=== PATIENT | male | born 1950 | race Caucasian/White ===

== ENCOUNTER 2017-08-23 05:06 | Observation (INO) ==
[2017-08-23 05:41] LABS: Basophils % 0.4 %; Eosinophils # 0.2 K/mcL (0.0-0.6); Eosinophils % 2.4 %; Hematocrit 45.5 % (37.5-50.1); Hemoglobin 15.4 g/dL (12.9-16.9); Immature Granulocytes % 0.2 % (0-4); Lymphocytes % 21.7 %; Mean Corpuscular HGB Conc 33.8 g/dL (31.6-35.5); Mean Corpuscular Hemoglobin 32.7 pg (28.0-33.3); Mean Corpuscular Volume 96.6 fL (83.0-100.0); Mean Platelet Volume 9.9 fL (9.4-12.4); Monocytes # 1.1 K/mcL (0.0-1.3); Monocytes % 12.1 %; Neutrophils # 5.9 K/mcL (1.6-8.9); Platelet Count 230 K/mcL (140-400); Red Blood Count 4.71 M/mcL (4.19-5.50); Red Cell Distribution Width 12.5 % (11.5-14.5); Segmented Neutrophils % 63.2 %
--- NOTE | 2017-08-23 05:41 | Emergency Department Note ---
Disposition Clinical Impression: Elevated troponin, Shortness of breath Disposition: Admitted As Inpatient Condition: Good SOB HPI - General Chief Complaint: ED Shortness of Breath/Dyspnea Stated Complaint: antelmo Time Seen by Provider: 08/23/17 05:09 Source: patient, EMS Mode of arrival: EMS Limitations: no limitations Nursing Notes Reviewed: Yes Vital Signs Reviewed: Yes - History of Present Illness 67-year-old male history of CABG 2, recent stent placement at [place] who presents to the ER via EMS due to shortness of breath. Patient reports he was just discharged yesterday evening. He was diagnosed with influenza and started on Tamiflu on Saturday. He states they checked him chest x-ray for pneumonia and it was okay. He reports after he got home he started developing worsening shortness of breath overnight. He reports a cough with some sputum productive sputum. No fevers. No chest pain. No nausea vomiting or diarrhea. No history of COPD or asthma. No other complaints. Pt Subjective Complaint: shortness of breath, cough Onset (ago): hour(s) Context: recent illness Severity: moderate Consistency/Duration: constant Improves with: nothing Worsens with: nothing Associated symptoms: Reports: cough, sputum production. Denies: chest pain, fever Treatment prior to arrival: none Cough present: Yes Cough Description: Involuntary Cough Frequency: Intermittent Sputum production: No Sputum Amount: None - Related Data Home oxygen amount: none Home Medications Medication Instructions Recorded Confirmed Aspirin [Ecotrin] 325 mg PO DAILY #0 10/08/15 08/23/17 Lansoprazole [Prevacid] 30 mg PO DAILY #0 10/08/15 08/23/17 Lisinopril-HCTZ 10-12.5 [Prinzide 1 tab PO DAILY #0 10/08/15 08/23/17 10-12.5] Multivitamin [One Daily 1 tab PO DAILY #0 10/08/15 08/23/17 Multivitamin] Niacin [Plain Niacin] 250 mg PO DAILY #0 10/08/15 08/23/17 Nitroglycerin [Nitrostat] 0.4 mg SL Q5M #0 10/08/15 08/23/17 Atorvastatin [Lipitor] 40 mg PO HS 08/23/17 08/23/17 Clopidogrel [Plavix] 75 mg PO DAILY 08/23/17 08/23/17 Metoprolol Succinate 50 mg PO DAILY 08/23/17 08/23/17 Pregabalin [Lyrica] 50 mg PO BID 08/23/17 08/23/17 Zolpidem Tartrate [Ambien Cr] 12.5 mg PO HS 08/23/17 08/23/17 amLODIPine [Norvasc] 5 mg PO DAILY 08/23/17 08/23/17 Previous Rx's Medication Instructions Recorded Oseltamivir [Tamiflu] 75 mg PO BID 5 Days capsule 10/08/15 Allergies Allergy/AdvReac Type Severity Reaction Status Date / Time tetanus and diphtheria Allergy See Verified 10/31/16 18:16 toxoids Comments [Tetanus&Diphtheria Toxoid] All systems ED: reviewed and negative except as stated. Constitutional: Denies: fever Cardiovascular: Denies: chest pain Respiratory: Reports: cough, dyspnea, sputum production Gastrointestinal: Denies: abdominal pain, nausea, vomiting Past Medical History - Past Medical History Attestation: Yes The following information was validated with the patient. Source: patient Medical history: Reports: coronary artery disease, hyperlipidemia, hypertension , myocardial infarction Psychiatric history: Reports: no psych history - Social History Smoking Status: Never smoker Smokeless Tobacco Status: No Alcohol use: Reports: none Drug use: Reports: none Physical Exam - General Limitations: no limitations General appearance: alert, in no apparent distress - Head Head exam: atraumatic - Eye Eye exam: Present: normal appearance - ENT ENT exam: normal exam - Neck Neck exam: Present: normal inspection, full ROM - Chest Chest inspection: Present: normal inspection, symmetric chest wall rise - Respiratory Respiratory exam: Present: normal lung sounds bilaterally - Cardiovascular Cardiovascular exam: Present: regular rate, normal rhythm, normal heart sounds - Abdominal Exam Abdominal exam: Present: soft, Non-Tender. Absent: tenderness - Extremities Exam Extremities exam: Present: normal inspection, full ROM - Expanded Upper Extremity Exam Shoulder exam: Present: normal inspection, full ROM Arm exam: Present: normal inspection, full ROM Elbow exam: Present: normal inspection, full ROM Forearm/Wrist exam: Present: normal inspection, full ROM Hand exam: Present: normal inspection, full ROM - Expanded Lower Extremity Exam Hip/Pelvis exam: Present: normal inspection, full ROM Upper leg exam: Present: normal inspection, full ROM Knee exam: Present: normal inspection, full ROM Lower leg exam: Present: normal inspection, full ROM Ankle exam: Present: normal inspection, full ROM Foot/toe exam: Present: normal inspection, full ROM - Skin Skin exam: Present: warm, dry Course Course Narrative: Patient seen and examined. Vital signs reviewed. We will get an EKG, chest x- ray as well as labs including troponin. - Reevaluation(s) Reevaluation #1: Troponin elevated at 1.33. Discussed with patient. Offered transfer versus admission here. He is comfortable with being admitted here at this time. He denies any recent bleeding. We will order heparin and speak with cardiology as well as the hospitalist for admission. Cardiology paged. Vital Signs Temperature 99.1 F 08/23/17 05:10 Pulse Rate 94 08/23/17 05:10 Respiratory Rate 20 08/23/17 05:10 Blood Pressure 224/121 08/23/17 05:10 O2 Sat by Pulse Oximetry 96 08/23/17 05:10 Temperature 99.1 F 08/23/17 05:10 Pulse Rate 93 08/23/17 07:11 Respiratory Rate 20 08/23/17 07:11 Blood Pressure 134/101 08/23/17 07:11 O2 Sat by Pulse Oximetry 94 08/23/17 07:11 Oxygen Delivery Oxygen Delivery Room Air Shortness of Breath/Dyspnea - MDM Narrative Medical decision making narrative: 67-year-old male presents to the ER due to shortness of breath and cough. He was recently hospitalized and underwent left heart catheterization with a stent placed in his prior bypass graft. He denies any chest pain here. He is hemodynamically stable. EKG without ischemic features. Chest x-ray unremarkable. He is currently being treated for influenza. He is noted to have an elevated troponin of 1.33. He is chest pain-free. It is likely that this may be secondary to his recent heart catheterization however patient will be heparinized and admitted to the hospitalist service with cardiology consultation. - Lab Data Lab results reviewed: Yes I reviewed the patient's lab results. Result diagrams: 08/23/17 05:25 08/23/17 05:25 Lab Results 08/23/17 08/23/17 08/23/17 Range/Units 05:25 05:25 05:25 WBC 9.3 (4.3-11.1) K/mcL RBC 4.71 (4.19-5.50) M/mcL Hgb 15.4 (12.9-16.9) g/dL Hct 45.5 (37.5-50.1) % MCV 96.6 (83.0-100.0) fL MCH 32.7 (28.0-33.3) pg MCHC 33.8 (31.6-35.5) g/dL RDW 12.5 (11.5-14.5) % Plt Count 230 (140-400) K/mcL MPV 9.9 (9.4-12.4) fL Immature Gran % 0.2 (0-4) % Seg Neutrophils % 63.2 % Lymphocytes % 21.7 % Monocytes % 12.1 % Eosinophils % 2.4 % Basophils % 0.4 % Neutrophils # 5.9 (1.6-8.9) K/mcL Lymphocytes # 2.0 (0.6-4.6) K/mcL Monocytes # 1.1 (0.0-1.3) K/mcL Eosinophils # 0.2 (0.0-0.6) K/mcL Basophils # 0.0 (0.0-0.2) K/mcL PT (9.4-12.1) Seconds INR APTT (26.0-36.0) Seconds Sodium 140 (136-145) mEq/L Potassium 4.1 (3.5-5.1) mEq/L Chloride 102 (98-107) mEq/L Carbon Dioxide 29 (23-29) mEq/L BUN 18 (8-23) mg/dL Creatinine 1.18 (0.70-1.30) mg/dL Est GFR ( Amer) > 60 (> 60) Est GFR (Non-Af Amer) > 60 (> 60) BUN/Creatinine Ratio 15 (6-26) Glucose 104 (70-105) mg/dL Calculated Osmolality 292 (280-300) Calcium 9.4 (8.6-10.3) mg/dL Troponin I 1.33 H* (< 0.04) ng/mL B-Natriuretic Peptide (Less than 100) pg/mL 08/23/17 08/23/17 Range/Units 05:25 05:25 WBC (4.3-11.1) K/mcL RBC (4.19-5.50) M/mcL Hgb (12.9-16.9) g/dL Hct (37.5-50.1) % MCV (83.0-100.0) fL MCH (28.0-33.3) pg MCHC (31.6-35.5) g/dL RDW (11.5-14.5) % Plt Count (140-400) K/mcL MPV (9.4-12.4) fL Immature Gran % (0-4) % Seg Neutrophils % % Lymphocytes % % Monocytes % % Eosinophils % % Basophils % % Neutrophils # (1.6-8.9) K/mcL Lymphocytes # (0.6-4.6) K/mcL Monocytes # (0.0-1.3) K/mcL Eosinophils # (0.0-0.6) K/mcL Basophils # (0.0-0.2) K/mcL PT 12.0 (9.4-12.1) Seconds INR 1.1 APTT 27.6 (26.0-36.0) Seconds Sodium (136-145) mEq/L Potassium (3.5-5.1) mEq/L Chloride (98-107) mEq/L Carbon Dioxide (23-29) mEq/L BUN (8-23) mg/dL Creatinine (0.70-1.30) mg/dL Est GFR ( Amer) (> 60) Est GFR (Non-Af Amer) (> 60) BUN/Creatinine Ratio (6-26) Glucose (70-105) mg/dL Calculated Osmolality (280-300) Calcium (8.6-10.3) mg/dL Troponin I (< 0.04) ng/mL B-Natriuretic Peptide 99 (Less than 100) pg/mL - Radiology Data Radiology results reviewed: Yes I reviewed the patient's radiology results. Chest X-Ray 08/23/17 05:19 IMPRESSION: No acute process. D/ / Clarissa Frank MD / Clarissa Frank MD Interpreting Provider: Clarissa Frank MD - EKG Data EKG attestation: Yes I reviewed and interpreted this EKG. EKG results narrative: EKG demonstrates sinus rhythm with PVCs with a rate of 89 bpm. Normal axis. Normal intervals. Normal R-wave progression. No gross ST elevations or depressions. No acute ischemic findings. No significant changes from previous EKG dated 10/31/16. Critical Care Time Critical Care Time: Yes Total Critical Care Time: 40 Attestation: Critical care performed: Time is exclusive of separately billable procedures. Time includes: direct patient care, patient reassessment, coordination of patient care, interpretation of data (laboratory data, radiology data, and respiratory data), review of patient's medical records, medical consultation and documentation of patient care. Procedures included in critical care time: Procedures excluded from critical care time: S.B.A.Adelia. - Zehra.Emeka Situation: Demographics, MOA Background: Presenting Complaint, Relevant PMH, Meds, & Allergies Assessment: Vital Signs, Course and respsone to treatment, Exam Concerns, Patient/Family Expectation, Pertinant Lab Results Recommendation: Barrier(s) to disposition, Recommendation based on pending studies, treatments, or consults [email or web address] Report Given to: Dr. Aiden De La Cruz Repor Time: 06:45 Attestation Statement - Attestation Attestation: I, Bradford Patton MD, personally evaluated this patient and discussed their management with the resident physician. I reviewed the resident's note and agree with the documented findings, medical decision making, and plan of care. 67-year-old male presents to the emergency department with a complaint of difficulty breathing. Patient just had a cardiac catheter with stents placed 2 days ago. On the day that he had the procedure done he developed a fever and had a positive flu swab for type A. He has been on Tamiflu for the past 2 days. He was discharged from the hospital yesterday and presents here tonight complaining of difficulty breathing and shortness of breath with tightness in his chest. He states he has been unable to sleep all night due to the shortness of breath. Some mild cough. On examination patient is a well-developed well-nourished female in no acute distress. He does appear mildly short of breath and is somewhat anxious. No cyanosis or diaphoresis. Patient talks in full sentences. Breath sounds are clear and equal bilaterally. Heart regular rate and rhythm with occasional ectopy. Abdomen soft and nontender with normal bowel sounds. Labs reviewed. Troponin 1.33. Otherwise unremarkable. Chest x-ray negative. EKG shows a normal sinus rhythm with frequent PVCs. Heart rate 89. Possible anterior TN, probably old. No acute ischemic changes noted. Patient was placed on a heparin infusion. I discussed the case with the costumed character on-call, Dr. Arroyo. She is in agreement with the heparin and trending the troponins and cardiology will consult on the patient in the hospital. The hospitalist, Dr. Wolfe, was consulted and accepted admission of the patient.
[2017-08-23 06:06] LABS: BUN/Creatinine Ratio 15 (6-26); Blood Urea Nitrogen 18 mg/dL (8-23); Calcium 9.4 mg/dL (8.6-10.3); Carbon Dioxide 29 mEq/L (23-29); Chloride 102 mEq/L (98-107); Glucose 104 mg/dL (70-105); Osmolality,Calculated 292 (280-300); Potassium 4.1 mEq/L (3.5-5.1); Sodium 140 mEq/L (136-145); eGFR For African Americans > 60 (> 60); eGFR For Non-African Americans > 60 (> 60)
[2017-08-23] MEDS ORDERED: Benzonatate 100 MG CAPSULE PO ONE (06:11)
[2017-08-23] MEDS ORDERED: *HR* Heparin 5,000 UNIT/ML VIAL IVP PRN ×2 (06:19)
[2017-08-23] MEDS ORDERED: *HR* Heparin 5,000 UNIT/ML VIAL IVP ONE (06:19)
[2017-08-23 07:05] LABS: INR 1.1
[2017-08-23 07:08] LABS: Activated Partial Thrombo Time 27.6 Seconds (26.0-36.0)
[2017-08-23] MEDS: Heparin 25,000 UNIT/500 ML D5W 25,000 UNIT/500 ML BAG IVC SCH (07:14)
--- NOTE | 2017-08-23 07:47 | Internal Med History&Physical ---
Date of Encounter: 08/23/17 Time of Encounter: 07:42 Assessment and Plan (1) CAD (coronary artery disease) Current visit: Yes Status: Chronic History of CABG 2 vessel no chest pain just had recent angioplasty O1 vessel on saturday Qualifiers: Coronary Disease-Associated Artery/Lesion type: bypass graft [place] vs. transplanted heart: [place] heart Associated angina: without angina Qualified Code(s): I25.810 - Atherosclerosis of coronary artery bypass graft(s) without angina pectoris (2) Hx of CABG Current visit: Yes Status: Acute (3) Hyperlipidemia Current visit: Yes Status: Chronic Chronic Qualifiers: Hyperlipidemia type: pure hypercholesterolemia Qualified Code(s): E78.00 - Pure hypercholesterolemia, unspecified; E78.0 - Pure hypercholesterolemia (4) Elevated troponin Current visit: Yes Status: Acute Troponin 1.33 had a recent angioplasty will consult cardiology for further evaluation patient is not having any chest pain (5) Shortness of breath Current visit: Yes Status: Acute Clinically patient is not in congestive heart failure no active wheezing chest x -rays unremarkable most likely flu syndrome Internal Medicine - H&P: HPI Chief complaint: sob Admitted From: Emergency Dept Plans for Post Hospital Care: Home History of present illness: Mr. Smimons is a 67 year old male Patient with history of CABG 2 vessels, high cholesterol, hypertension, obesity , he was just at [facility] near [place] and had 1 stent placed on Saturday he was having some nonproductive cough he had the flu test which was positive that he was started on Tamiflu patient was just discharged home yesterday to continue on Tamiflu when he got home he felt he was short of breath and they decided to come back to the emergency room here evaluation here chest x-ray was unremarkable no pneumonia BNP was 99 clinically without heart failure troponin was 1.33 patient is being admitted because of the positive troponin patient he does not know whether his troponin was high at the hospital and to his knowledge he was not diagnosed with myocardial infarction or nstemi He is not having any chest pain patient will be admitted and consult cardiology. Past Med Surg Social Fam HX - Past Medical History Medical history: coronary artery disease, hyperlipidemia, hypertension, myocardial infarction Psychiatric history: no psych history - Past Surgical History Surgical History: coronary bypass (CABG) - Social History Smoking Status: Never smoker Smokeless Tobacco Status: No Alcohol use: none Drug use: none Internal Medicine - H&P: Meds Aspirin [Ecotrin] 325 mg PO DAILY #0 10/08/15 [History] Lansoprazole [Prevacid] 30 mg PO DAILY #0 10/08/15 [History] Lisinopril-HCTZ 10-12.5 [Prinzide 10-12.5] 1 tab PO DAILY #0 10/08/15 [History] Multivitamin [One Daily Multivitamin] 1 tab PO DAILY #0 10/08/15 [History] Niacin [Plain Niacin] 250 mg PO DAILY #0 10/08/15 [History] Nitroglycerin [Nitrostat] 0.4 mg SL Q5M #0 10/08/15 [History] Oseltamivir [Tamiflu] 75 mg PO BID 5 Days capsule 10/08/15 [Rx] Atorvastatin [Lipitor] 40 mg PO HS 08/23/17 [History] Clopidogrel [Plavix] 75 mg PO DAILY 08/23/17 [History] Metoprolol Succinate 50 mg PO DAILY 08/23/17 [History] Pregabalin [Lyrica] 50 mg PO BID 08/23/17 [History] Zolpidem Tartrate [Ambien Cr] 12.5 mg PO HS 08/23/17 [History] amLODIPine [Norvasc] 5 mg PO DAILY 08/23/17 [History] 3 Allergy/AdvReac Type Severity Reaction Status Date / Time tetanus and diphtheria Allergy See Verified 10/31/16 18:16 toxoids Comments [Tetanus&Diphtheria Toxoid] All Systems PM: A 10-system review of systems was performed and is negative for pertinent findings except as documented above in the HPI. - Constitutional Constitutional: no chills, no fever(s), no night sweats - EENT Eyes: no change in vision, no discharge, no pain, no photophobia Ears: no ear discharge, no ear pain, no tinnitus Nose, mouth and throat: no dysphagia, no nasal discharge, no neck pain, no sore throat - Cardiovascular Cardiovascular ROS IM: dyspnea, dyspnea on exertion - Respiratory Respiratory: cough, dyspnea, no excessive phlegm production - Gastrointestinal Gastrointestinal: no abdominal pain, no diarrhea, no hematemesis, no hematochezia, no melena, no nausea, no vomiting - Musculoskeletal Musculoskeletal ROS IM: no numbness, no tingling - Integumentary Integumentary IM: no rash, no unusual bruising - Constitutional Vitals: Temp Pulse Resp BP Pulse Ox 99.1 F 93 20 134/101 94 08/23/17 05:10 08/23/17 07:11 08/23/17 07:11 08/23/17 07:11 08/23/17 07:11 General appearance: Present: A&O X 3 - Neck Neck exam general surgery: Present: supple, trachea midline. Absent: lymphadenopathy - Respiratory Respiratory exam: Present: CTAB. Absent: accessory muscle use, rales, rhonchi, wheezes - Cardiovascular Cardiovascular exam: Present: RRR, +S1, +S2. Absent: diastolic murmur, gallop, rubs, systolic murmur - GI/Abdominal GI/Abdominal exam: Present: normal bowel sounds, soft, no peritoneal signs. Absent: distended, tenderness - Extremities Exam Extremities exam: Present: warm, radial pulses palpable and symmetrical. Absent : calf tenderness, cyanotic, pedal edema Internal Med - H&P Results - Labs CBC & Chem 7: 08/23/17 05:25 08/23/17 05:25
[2017-08-23] MEDS ORDERED: Ibuprofen 400 MG TABLET PO PRN (07:54)
[2017-08-23] MEDS ORDERED: Naloxone 0.4 MG/ML INJ IVP PRN (07:54)
[2017-08-23] MEDS ORDERED: Acetaminophen 325 MG TABLET PO PRN (07:54)
[2017-08-23] MEDS ORDERED: Nitroglycerin 0.4 MG TAB.SUBL SL SCH (08:00)
[2017-08-23] MEDS: amLODIPine 5 MG TABLET PO SCH (08:29)
[2017-08-23] MEDS: Multivit/Ca/Min/Fe/FA 1 TAB TABLET PO SCH (08:30)
[2017-08-23] MEDS ORDERED: Metoprolol XL (24 HR) Succ 50 MG TAB.ER.24H PO SCH (09:00)
[2017-08-23] MEDS ORDERED: NIACIN 250 MG PO SCH (09:00)
[2017-08-23] MEDS: Aspirin Enteric Coated 325 MG Tablet PO SCH (09:47)
--- NOTE | 2017-08-23 10:24 | Cardiology Consult Note ---
<EdgarAnasari Dash - Last Filed: 08/23/17 10:19> Date of Encounter: 08/23/17 Time of Encounter: 08:30 Assessment and Plan (1) Influenza Current Visit: Yes Status: Acute Per cardiology: -Recently diagnosed with influenza this week at outside facility. -On tamiflu. -Management per primary service. (2) Shortness of breath Current Visit: Yes Status: Acute Per cardiology: -Admitted with increased shortness of breath in the setting of influenza. -States breathing is better now than upon presentation. -Management per primary service. (3) Elevated troponin Current Visit: Yes Status: Acute Per cardiology: -Troponin 1.33, 1.21. -Troponins elevated in the setting of influenza, recent coronary intervention on Saturday of this week, and HTN. -OF note, BP 224/121 on admission. Currently 110-130s systolic. -Denies chest pain. -ECG with no acute ischemic changes, however ECG suboptimal. -Currently on heparin drip. -Will obtain records from [facility] regarding [facility], troponin levels. -Troponin elevated possibly related to recent coronary intervention. At this time do not suspect NSTEMI. No cardiac rehab consult warranted. -Will order TTE. -Further recommendations pending TTE and records review. (4) CAD (coronary artery disease) Current Visit: Yes Status: Chronic Per cardiology: -Known history of CAD with 2 previous CABG x3 vessels each time. -Recent PCI on Saturday. -Denies chest pain. -On asa, plavix, statin, beta camille. -Last TTE 04/2016 with LVEF 55%, mild diastolic dysfunction, mild AR, no segmental wall motion abnormalities. -Will check TTE. Qualifiers: Coronary Disease-Associated Artery/Lesion type: unspecified vessel or lesion type [place] vs. transplanted heart: [place] heart Associated angina: without angina Qualified Code(s): I25.10 - Atherosclerotic heart disease of [place] coronary artery without angina pectoris Discussion w patient/family: The assessment and plan as outlined above was discussed with the patient who expressed understanding and agreement. All questions were answered. Thank you for involving us in the care of your patient. Please call with any questions. Discussed and reviewed with Dr.John Madrid. History of Present Illness Consult date: 08/23/17 Consult reason: elevated troponin Chief complaint: shortness of breath History of present illness: Mr. Simmons is a 67 year old male with a relevant past medical history of CAD s/p CABG x3 vessels x2, PCIs, HTN, hyperlipidemia, obesity, [place]. Patient reports he was treated this past [facility] and underwent LHC with stenting. Patient reports he was discharged yesterday, however this morning had increased shortness of breath and presented to ER. Cardiology has been asked to see and evaluate patient due to elevated troponin. Patient denies chest pain. Patient presented with increased shortness of breath, however states is better now than upon presentation. Patient reports increased fatigue with recent illness. Patient reports compliance with his medication, specifically asa and plavix. Past Med Surg Social Fam HX - Past Medical History Attestation: Yes The following information was validated with the patient. Source: patient, old records reviewed Medical history: coronary artery disease, hyperlipidemia, hypertension, myocardial infarction Psychiatric history: no psych history - Past Surgical History Surgical History: coronary bypass (CABG) - Social History Smoking Status: Never smoker Smokeless Tobacco Status: No Alcohol use: none Drug use: none Medications and Allergies Aspirin [Ecotrin] 325 mg PO DAILY #0 10/08/15 [History] Lansoprazole [Prevacid] 30 mg PO DAILY #0 10/08/15 [History] Lisinopril-HCTZ 10-12.5 [Prinzide 10-12.5] 1 tab PO DAILY #0 10/08/15 [History] Multivitamin [One Daily Multivitamin] 1 tab PO DAILY #0 10/08/15 [History] Niacin [Plain Niacin] 250 mg PO DAILY #0 10/08/15 [History] Nitroglycerin [Nitrostat] 0.4 mg SL Q5M #0 10/08/15 [History] Oseltamivir [Tamiflu] 75 mg PO BID 5 Days capsule 10/08/15 [Rx] Atorvastatin [Lipitor] 40 mg PO HS 08/23/17 [History] Clopidogrel [Plavix] 75 mg PO DAILY 08/23/17 [History] Metoprolol Succinate 50 mg PO DAILY 08/23/17 [History] Pregabalin [Lyrica] 50 mg PO BID 08/23/17 [History] Zolpidem Tartrate [Ambien Cr] 12.5 mg PO HS 08/23/17 [History] amLODIPine [Norvasc] 5 mg PO DAILY 08/23/17 [History] 3 Allergy/AdvReac Type Severity Reaction Status Date / Time tetanus and diphtheria Allergy See Verified 10/31/16 18:16 toxoids Comments [Tetanus&Diphtheria Toxoid] All Systems Review: A 10-system review of systems was performed and is negative for pertinent findings except as documented above in the HPI. - Constitutional Constitutional: fatigue - Cardiovascular Cardiovascular: as per HPI, dyspnea at rest, dyspnea on exertion Physical Examination Vital Signs, Last 4 Hours Pulse Resp BP Pulse Ox 08/23/17 08:30 78 16 132/75 76 08/23/17 07:11 93 20 134/101 94 General: Conversant, No Apparent Distress HEENT: Atraumatic, Normocephaly, Mucus Membranes Moist Neck: No JVD, Normal carotid pulses Cardiac: Reg Rate and Rhythm, Normal S1 and S2, No Murmur Lungs: Normal Breath Sounds, No Wheeze, Rales, Rhonchi Neuro: Alert and responsive, No focal deficits noted Abdomen: Soft, Non-Tender Skin: No rashes noted on visualized skin Musculoskeletal: No Chest Wall Tenderness Extremities: No Clubbing, No Cyanosis, No Edema, Normal Pulses Results 08/23/17 05:25 08/23/17 05:25 Impressions Chest X-Ray 08/23/17 05:19 IMPRESSION: No acute process. D/ / Clarissa Frank MD / Clarissa Frank MD Interpreting Provider: Clarissa Frank MD Active Medications Acetaminophen (Tylenol) 650 mg PO Q6HR PRN PRN Reason: Mild Pain/Fever Stop: 02/22/18 07:55 Amlodipine Besylate (Norvasc) 5 mg PO DAILY [facility] PRN Reason: Protocol Stop: 02/22/18 09:01 Last Admin: 08/23/17 08:29 Dose: 5 mg Aspirin (Aspirin Ec) 325 mg PO DAILY [facility] Stop: 02/22/18 09:01 Last Admin: 08/23/17 09:47 Dose: 325 mg Atorvastatin Calcium (Lipitor) 40 mg PO HS [facility] Stop: 02/22/18 21:01 Clopidogrel Bisulfate (Plavix) 75 mg PO DAILY [facility] Stop: 02/22/18 09:01 Last Admin: 08/23/17 09:47 Dose: 75 mg Lisinopril/HCTZ (Prinzide 10-12.5) 1 each PO DAILY [facility] Stop: 02/22/18 09:01 Last Admin: 08/23/17 08:29 Dose: 1 each Heparin Sodium (Porcine) (Heparin) 4,000 unit IVP Q6HR PRN PRN Reason: SEE COMMENTS Stop: 02/22/18 06:20 Heparin Sodium (Porcine) (Heparin) 2,000 unit IVP Q6H PRN PRN Reason: SEE COMMENTS Stop: 02/22/18 06:20 Heparin Sodium/Dextrose (Heparin 25,000 Unit/500 Ml D5w) 25,000 unit in 500 mls @ 20.003 mls/hr IVC .Q24H MICHAEL; 10.5 UNIT/KG/HR PRN Reason: Protocol Stop: 02/22/18 06:31 Last Admin: 08/23/17 07:14 Dose: 10.5 unit/kg/hr, 20.003 mls/hr Ibuprofen (Motrin) 400 mg PO Q6HR PRN PRN Reason: Mild Pain/Fever Stop: 02/22/18 07:55 Metoprolol Succinate (Toprol Xl) 50 mg PO DAILY [facility] Stop: 02/22/18 09:01 Last Admin: 08/23/17 08:29 Dose: 50 mg Multivitamins/Calcium (Thera M Plus) 1 tab PO DAILY [facility] Stop: 02/22/18 09:01 Last Admin: 08/23/17 08:30 Dose: 1 tab Naloxone HCl (Narcan) 0.4 mg IVP Q2MIN PRN PRN Reason: SEE COMMENTS Stop: 02/22/18 07:55 Nitroglycerin (Nitroglycerin) 0.4 mg SL Q5M [facility] Stop: 02/22/18 08:01 Omeprazole (Prilosec) 20 mg PO 0630 [facility] PRN Reason: Protocol Stop: 02/22/18 09:01 Oseltamivir Phosphate (Tamiflu) 75 mg PO BID [facility] Stop: 02/22/18 09:01 Last Admin: 08/23/17 10:12 Dose: 75 mg Pharmacy Profile Note (Patient Taking Own Medication) 1 each PO DAILY [facility] Stop: 02/22/18 09:01 Pregabalin (Lyrica) 50 mg PO BID [facility] Stop: 02/22/18 09:01 Zolpidem Tartrate (Ambien) 10 mg PO HS [facility] Stop: 02/22/18 21:01 Laboratory Tests 08/23/17 08/23/17 08/23/17 05:25 05:25 05:25 Hgb 15.4 Creatinine 1.18 Troponin I 1.33 H* 08/23/17 09:24 Hgb Creatinine Troponin I 1.21 H* - Imaging and Cardiology Chest Xray: report reviewed Echo: pending, report reviewed - EKG Interpretation EKG results cardiology: personally reviewed (ECG with SR with PVCs, HR 89.) Consult Discharge Plan - Plan Referrals: Dash Ruiz MD [Primary Care Provider] - <Duane Madrid - Last Filed: 08/23/17 10:58> Date of Encounter: 08/23/17 - Attending Attestation I have personally performed a face to face evaluation on this patient. I have reviewed and agree with the care plan. History and Exam by me shows: Known CAD, recent stent. Recent diagnosis of influenza. Mildly elevated troponin. Will trend troponins and get recent cardiac records. Assessment and Plan Discussion w patient/family: The assessment and plan as outlined above was discussed with the patient and/or family members who expressed understanding and agreement. All questions were answered. Thank you for involving us in the care of your patient. Please call with any questions. History of Present Illness History of present illness: Mr. Simmons is a 67 year old male All Systems Review: A 10-system review of systems was performed and is negative for pertinent findings except as documented above in the HPI. Physical Examination Vital Signs, Last 4 Hours Pulse Resp BP Pulse Ox 08/23/17 08:30 78 16 132/75 76 08/23/17 07:11 93 20 134/101 94 Results 08/23/17 05:25 08/23/17 05:25 Lab Results 08/23/17 09:24 Troponin I 1.21 H*
[2017-08-23] MEDS: Pregabalin 50 MG CAPSULE PO SCH ×2 (14:53→20:03)
[2017-08-23] MEDS ORDERED: Nitroglycerin 0.4 MG TAB.SUBL SL PRN (15:49)
[2017-08-23] MEDS ORDERED: Perflutren Lipid Microsphere 1.3 ML in 0.9 % Sodium Chloride 8.7 ML IVP ONE (15:55)
--- NOTE | 2017-08-23 18:06 | Electrocardiograph Report ---
[place] [id number] Test Date: 2017-08-23 Pat Name: Oz Simmons Department: 104 Room: 2A26 Gender: M Medical Unit Secretary: MARINE : 1950 Requested By: Lamin Dunn Order Number: [id number] Reading MD: Duane Madrid Measurements Intervals [place] Rate: 89 P: 54 MT: 165 QRS: 83 QRSD: 98 T: 66 QT: 370 QTc: 417 Interpretive Statements SINUS RHYTHM WITH FREQUENT VENTRICULAR PREMATURE COMPLEXES POSSIBLE ANTERIOR MYOCARDIAL INFARCTION, PROBABLY OLD ABNORMAL RHYTHM ECG Electronically Signed On 08-23-2017 18:05:02 EST by Duane Madrid
[2017-08-23 20:55] LABS: Magnesium 1.9 mg/dL (1.6-2.6); Potassium 4.4 mEq/L (3.5-5.1)
[2017-08-24] MEDS: Heparin 25,000 UNIT/500 ML D5W 25,000 UNIT/500 ML BAG IVC SCH (04:55)
[2017-08-24] MEDS: Multivit/Ca/Min/Fe/FA 1 TAB TABLET PO SCH (07:43)
[2017-08-24] MEDS: amLODIPine 5 MG TABLET PO SCH (07:44)
[2017-08-24] MEDS: Pregabalin 50 MG CAPSULE PO SCH ×2 (07:44→20:27)
[2017-08-24] MEDS: Aspirin Enteric Coated 325 MG Tablet PO SCH (07:44)
--- NOTE | 2017-08-24 11:08 | Event Note ---
Date of Encounter: 08/24/17 Time of Encounter: 11:08 - Cardiology Event Note Echo resulted-LVEF 55%. Mild left ventricular diastolic dysfunction. Normal right ventricular structure and function. No significant valvular dysfunction. No pulmonary hypertension. Troponins 1.33, 1.21, 1.00, 0.99--downtrending in setting of influenza, recent coronary intervention on Saturday of this week, and HTN--BP 224/121 on admission. Suspect demand ischemia. Records from [facility] not yet received. If any concerns once records are obtained, please reconsult. Cardiology signing off. Reconsult PRN. Follow-up as outpt with either [facility] or [facility] in 1-2 weeks.
--- NOTE | 2017-08-24 11:43 | Internal Med Progress Note ---
Date of Encounter: 08/24/17 Time of Encounter: 11:06 - Assessment and plan (1) Influenza Current Visit: Yes Status: Acute Assessment and plan: Started on Tamiflu will add Duoneb and Mucinex closely monitor respiratory status O2 supplementation as needed (2) Shortness of breath Current Visit: Yes Status: Acute Assessment and plan: as listed above (3) Elevated troponin Current Visit: Yes Status: Acute Assessment and plan: cardiology evaluation appreciated no acute intervention recommended at this time d/c heparin gtt continue asa, plavix, statin, BB (4) Hx of CABG Current Visit: Yes Status: Chronic Assessment and plan: as listed above (5) CAD (coronary artery disease) Current Visit: Yes Status: Chronic Qualifiers: Coronary Disease-Associated Artery/Lesion type: unspecified vessel or lesion type [place] vs. transplanted heart: [place] heart Associated angina: without angina Qualified Code(s): I25.10 - Atherosclerotic heart disease of [place] coronary artery without angina pectoris (6) Hyperlipidemia Current Visit: Yes Status: Chronic Assessment and plan: continue statin therapy Qualifiers: Hyperlipidemia type: pure hypercholesterolemia Qualified Code(s): E78.00 - Pure hypercholesterolemia, unspecified; E78.0 - Pure hypercholesterolemia (7) DVT prophylaxis Current Visit: Yes Status: Acute Assessment and plan: heparin SQ - Subjective Interval history: Patient seen and examined at bedside. Resting in bed and reports of chest congestion. Denies any chest pain and saturating well on room air. Noted to be positive for influenza. Started on Tamiflu. Elevated troponins trending down, pt denies any chest pain. Cardiology signed off. D/C heparin gtt - Constitutional Vitals: Temp Pulse Resp BP Pulse Ox 97.4 F L 56 18 138/73 96 08/24/17 10:32 08/24/17 10:32 08/24/17 10:32 08/24/17 10:32 08/24/17 10:32 General appearance: Present: A&O X 3, no acute distress, obese, answers questions appropriately - Head Head exam: Present: atraumatic, normocephalic - Eye Eye exam: Present: conjuntiva pink, sclera anicteric - Respiratory Respiratory exam: Present: wheezes (mild b/l expiratory wheezing ). Absent: respiratory distress - Cardiovascular Cardiovascular exam: Present: RRR, +S1, +S2. Absent: diastolic murmur, gallop, rubs, systolic murmur - GI/Abdominal GI/Abdominal exam: Present: normal bowel sounds, soft, no peritoneal signs. Absent: distended, tenderness - Extremities Exam Extremities exam: Present: warm, radial pulses palpable and symmetrical. Absent : calf tenderness - Neurological Exam Neurological exam: Present: alert, oriented X3 - Psychiatric Psychiatric exam: Present: normal affect, normal mood Internal Medicine: Result - Labs CBC & Chem 7: 08/23/17 05:25 08/23/17 14:28 Labs: BMP 08/23/17 14:28 Potassium 4.4 Cardiac Enzymes 08/23/17 08/23/17 Range/Units 14:28 20:36 Troponin I 1.00 H* 0.99 H* (< 0.04) ng/mL - ABG Interpretation ABG results: PT/INR, D-dimer PT 12.0 Seconds (9.4-12.1) 08/23/17 05:25 - Impressions Impressions Echocardiogram 08/23/17 10:45 Impressions: LVEF 55%. Mild left ventricular diastolic dysfunction. Normal right ventricular structure and function. No significant valvular dysfunction. No pulmonary hypertension. Left Ventricular Wall Motion: Rest Echo Findings The mid anterior septal, mid inferior lateral, basal anterior septal and basal inferior lateral ríos were not visualized. All other wall segments showed normal motion. Findings: Study Quality * Technically challenging due to body habitus. ECG Findings * Normal sinus rhythm. Left Ventricle * LVEF 55%. * Mild left ventricular diastolic dysfunction. * Normal LV size and wall thickness. Right Ventricle * Normal right ventricular structure and function. Left Atrium * Normal left atrial size. Right Atrium * Normal right atrial size. Aortic Valve * No aortic regurgitation. * Trileaflet aortic valve. * No aortic stenosis. Mitral Valve * No mitral regurgitation. * Mitral valve not well visualized. * No mitral stenosis. Tricuspid Valve * Tricuspid valve not well visualized. * Trace tricuspid regurgitation. Pulmonic Valve * Pulmonic valve is not well visualized. * No pulmonic stenosis. * No pulmonic regurgitation. Pulmonary Artery * Pulmonary artery not well visualized. Aorta * Normally sized aortic root. * Ascending aorta is not well visualized. Pericardium * There is no pericardial effusion present. Interatrial Septum * Interatrial septum not well evaluated. IVC * The IVC is not well evaluated. Consult Discharge Plan - Plan Referrals: Dash Ruiz MD [Primary Care Provider] -
[2017-08-24] MEDS: Ipratropium/Albuterol Neb 3 ML IH SCH ×3 (11:48→22:20)
[2017-08-24] MEDS: GuaiFENesin/Dextromethorphan TABLET PO SCH ×2 (12:39→20:27)
[2017-08-24] MEDS: *HR* Heparin 5,000 UNIT/ML VIAL SQ SCH (18:45)
[2017-08-25] MEDS: Ipratropium/Albuterol Neb 3 ML IH SCH ×2 (03:45→09:55)
[2017-08-25 05:48] LABS: Basophils # 0.1 K/mcL (0.0-0.2); Basophils % 0.9 %; Eosinophils # 0.3 K/mcL (0.0-0.6); Eosinophils % 4.5 %; Hematocrit 40.6 % (37.5-50.1); Immature Granulocytes % 0.5 % (0-4); Lymphocytes # 2.2 K/mcL (0.6-4.6); Lymphocytes % 32.8 %; Mean Corpuscular Hemoglobin 32.8 pg (28.0-33.3); Mean Corpuscular Volume 96.4 fL (83.0-100.0); Mean Platelet Volume 9.9 fL (9.4-12.4); Neutrophils # 3.1 K/mcL (1.6-8.9); Platelet Count 233 K/mcL (140-400); Red Blood Count 4.21 M/mcL (4.19-5.50); Red Cell Distribution Width 12.5 % (11.5-14.5); Segmented Neutrophils % 46.3 %
[2017-08-25 05:49] LABS: Hemoglobin 13.8 g/dL (12.9-16.9)
[2017-08-25] MEDS: *HR* Heparin 5,000 UNIT/ML VIAL SQ SCH (06:04)
[2017-08-25 06:05] LABS: Platelet Estimate Normal (Normal); Reactive Lymphocytes Present (Not Present)
[2017-08-25 06:06] LABS: BUN/Creatinine Ratio 17 (6-26); Blood Urea Nitrogen 19 mg/dL (8-23); Calcium 9.1 mg/dL (8.6-10.3); Carbon Dioxide 29 mEq/L (23-29); Chloride 102 mEq/L (98-107); Glucose 111 mg/dL (70-105); Magnesium 2.1 mg/dL (1.6-2.6); Osmolality,Calculated 289 (280-300); Phosphorous 2.9 mg/dL (2.7-4.5); Sodium 138 mEq/L (136-145); eGFR For African Americans > 60 (> 60); eGFR For Non-African Americans > 60 (> 60)
[2017-08-25] MEDS: Pregabalin 50 MG CAPSULE PO SCH (07:46)
[2017-08-25] MEDS: Multivit/Ca/Min/Fe/FA 1 TAB TABLET PO SCH (07:46)
[2017-08-25] MEDS: Aspirin Enteric Coated 325 MG Tablet PO SCH (07:46)
[2017-08-25] MEDS: amLODIPine 5 MG TABLET PO SCH (07:46)
[2017-08-25] MEDS: GuaiFENesin/Dextromethorphan TABLET PO SCH (07:46)
--- NOTE | 2017-08-25 11:04 | Electrocardiograph Report ---
[place] [address] Test Date: 2017-08-23 Pat Name: Oz Simmons Department: 104 Room: 2A26 Gender: M Activities Attendant: [facility] : 1950 Requested By: Sharon Hernández Order Number: [id number] Reading MD: Duane Madrid Measurements Intervals [place] Rate: 79 P: 0 AR: 180 QRS: 92 QRSD: 100 T: 246 QT: 370 QTc: 405 Interpretive Statements SINUS RHYTHM WITH FREQUENT VENTRICULAR PREMATURE COMPLEXES BORDERLINE RIGHT AXIS DEVIATION MODERATE T-WAVE ABNORMALITY, CONSIDER LATERAL ISCHEMIA MODERATE T-WAVE ABNORMALITY, CONSIDER INFERIOR ISCHEMIA Electronically Signed On 08-25-2017 11:02:35 EST by Duane Madrid
[2017-08-25 11:33] VITALS: BP 123/67
--- NOTE | 2017-08-25 14:08 | Discharge Summary ---
Date of Encounter: 08/25/17 Time of Encounter: 13:20 - Discharge Diagnosis (1) Influenza Priority: Primary Status: Acute (2) Shortness of breath Priority: Primary Status: Resolved (3) Elevated troponin Priority: Secondary Status: Chronic (4) Hx of CABG Priority: Secondary Status: Chronic (5) CAD (coronary artery disease) Priority: Secondary Status: Chronic Qualifiers: Coronary Disease-Associated Artery/Lesion type: unspecified vessel or lesion type [place] vs. transplanted heart: [place] heart Associated angina: without angina Qualified Code(s): I25.10 - Atherosclerotic heart disease of [place] coronary artery without angina pectoris (6) Hyperlipidemia Priority: Secondary Status: Chronic Qualifiers: Hyperlipidemia type: pure hypercholesterolemia Qualified Code(s): E78.00 - Pure hypercholesterolemia, unspecified; E78.0 - Pure hypercholesterolemia (7) DVT prophylaxis Priority: Secondary Status: Acute - Discharge Medications Prescriptions: GuaiFENesin/Dextromethorphan [Mucinex Dm] 1 each PO BID #8 tab.er.12h Home Medications: Aspirin [Ecotrin] 325 mg PO DAILY #0 10/08/15 [History] Lansoprazole [Prevacid] 30 mg PO DAILY #0 10/08/15 [History] Lisinopril-HCTZ 10-12.5 [Prinzide 10-12.5] 1 tab PO DAILY #0 10/08/15 [History] Multivitamin [One Daily Multivitamin] 1 tab PO DAILY #0 10/08/15 [History] Niacin [Plain Niacin] 250 mg PO DAILY #0 10/08/15 [History] Nitroglycerin [Nitrostat] 0.4 mg SL Q5M #0 10/08/15 [History] Oseltamivir [Tamiflu] 75 mg PO BID 5 Days capsule 10/08/15 [Rx] Atorvastatin [Lipitor] 40 mg PO HS 08/23/17 [History] Clopidogrel [Plavix] 75 mg PO DAILY 08/23/17 [History] Metoprolol Succinate 50 mg PO DAILY 08/23/17 [History] Pregabalin [Lyrica] 50 mg PO BID 08/23/17 [History] Zolpidem Tartrate [Ambien Cr] 12.5 mg PO HS 08/23/17 [History] amLODIPine [Norvasc] 5 mg PO DAILY 08/23/17 [History] GuaiFENesin/Dextromethorphan [Mucinex Dm] 1 each PO BID #8 tab.er.12h 08/25/17 [ Rx] Allergies/Adverse Reactions: 3 Allergy/AdvReac Type Severity Reaction Status Date / Time tetanus and diphtheria Allergy See Verified 10/31/16 18:16 toxoids Comments [Tetanus&Diphtheria Toxoid] Procedures/tests Complete & Pending: Procedures Performed prior 72 hours Category Date Time Status ECG 12 lead ECG [ECG] Stat Y 08/23/17 10:44 Completed EV echocardiogram Routine Y 08/23/17 10:45 Completed Date of admission: 08/23/17 07:00 Primary care physician: Dash Ruiz MD Consults: 08/23/17 07:55 Consult to Physician [CONS] Routine Consulting Provider: Duane Madrid Reason for Consult: positive troponin Time Notified: 07:57 Call Completed: No Discharging clinician: Val Dickson Anticipated date of discharge: 08/25/17 - Patient Status Disposition: Home, Self-Care Condition: Good Functional capacity at discharge: independent ambulation Overall status at discharge: patient is back to baseline - Discharge Instructions Follow Up With: Dash Ruiz MD [Primary Care Provider] - Additional Instructions: Please follow up with your primary care physician within five days after your discharge from the hospital. Please follow up with your direct support staff member within one week after your discharge from the hospital. Resume all your home meds as prescribed by your primary care physician. - Diet and Activity Activity: increase activity as tolerated Diet: low fat, low cholesterol, low salt diet Hospital course: Mr. Simmons is a 67 year old male with PMH of CAD, s/p CABG, HLD, HTN, obesity who was admitted for acute respiratory distres and was positive for influenza. Pt was recently discharged from the hospital after having cardiac work up and CABG, during his hospitalization he was found to have influenza and was started on tamiflu. He had taken two doses of tamiflu but had persistent shortness of breath which prompted his visit to the hospital. Upon arrival to the ER, he was noted to have elevated TNI and cardiology evaluation was requested by the ER physician. Pt did not have any anginal symptoms and cardiology did not recommend any acute intervention at this time. He test positive for influenza, was continued on tamiflu with addition of mucinex. He is currently back to baseline respiratory status. He will be discharged to home with follow up with primary care physician and cardiology after discharge. - Time Spent with Patient Total time spent providing and/or coordinating discharge services: Less than 30 minutes - Constitutional Vitals: Temp Pulse Resp BP Pulse Ox 97.8 F 53 14 123/67 96 08/25/17 11:26 08/25/17 11:26 08/25/17 11:26 08/25/17 11:26 08/25/17 11:26 General appearance: Present: A&O X 3, no acute distress, obese, answers questions appropriately - Head Head exam: Present: atraumatic, normocephalic - Eye Eye exam: Present: conjuntiva pink, sclera anicteric - Respiratory Respiratory exam: Present: CTAB. Absent: respiratory distress, wheezes - Cardiovascular Cardiovascular exam: Present: RRR, +S1, +S2. Absent: diastolic murmur, gallop, rubs, systolic murmur - GI/Abdominal GI/Abdominal exam: Present: normal bowel sounds, soft, no peritoneal signs. Absent: distended, tenderness - Extremities Exam Extremities exam: Present: warm, radial pulses palpable and symmetrical. Absent : calf tenderness, cyanotic, pedal edema - Neurological Exam Neurological exam: Present: alert, oriented X3 - Psychiatric Psychiatric exam: Present: normal affect, normal mood
== END 2017-08-25 15:03 | disposition home or self-care (01) ==
LOC: EMEROO 05:06 → 2SOUTHHOLD 05:06 → SUATTDRO 07:00 → 2ANU 13:59
PROVIDERS: ADMIT Internal Medicine Cardiovascular Disease; ATTEND Internal Medicine